=== PATIENT | female | born 2000 | race Two or more races ===

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

== ENCOUNTER 2023-05-20 21:14 | Emergency (ER) | payer OTHER, SELFPAY ==
[2023-05-20 21:38] VITALS: BP 115/68; PULSE 106; RESP 18; TEMP 37.4; O2SAT 97; BMI 25.7
--- OUTSIDE RECORDS SUMMARY | 2023-05-20 22:23 | XMS_ITS | Continuity of Care Document ---
Demographics Address [address] [place] [address] Email Address Preferred Language so Marital Status Single Pentecostal Affiliation Unknown Race Unknown Ethnic Group or Author Name Unknown Organization [facility] nd[facility] Address [address] [place] [address]- Care Team Providers Care Roustabout Crew Pusher Name Role Phone Tiara SERRATO, Jane Joseph Primary Care Physician [place] [facility] [place] 09/01/20 - 10/01/20 [facility]ology [address] [place] [phone]- Medications Ortho Tri-Cyclen Lo oral tablet 1 tablet, By Mouth, Daily, starting on the first Sunday after menstruation, # 28 tablet, 6 Refills,Maintenance, 08/30/20 17:58:00 EST, Tablet, [id number], Partial fill upon patient request, 1 tablet By Mouth Daily,x28 days,Instr:starting on t... Start Date: 08/30/20 Stop Date: 03/14/21 Status: Ordered Provera 10 mg oral tablet 10 mg, 1, tablet, By Mouth, Daily, # 10 tablet, Refills 0, Tot. Refills 0, Maintenance, 09/01/20 17:01:00 EST, Route to Pharmacy Electronically, [id number], Partial fill upon patient request Start Date: 09/01/20 Stop Date: 09/11/20 Status: Ordered
--- OUTSIDE RECORDS SUMMARY | 2023-05-20 22:23 | XMS_ITS | Continuity of Care Document ---
Demographics Address [address] [place] [address] [address] [place] [address] Email Address Preferred Language so Marital Status Single Buddhism Affiliation Unknown Race Unknown Ethnic Group or Author Name Unknown Organization [facility] ndocrinology Address [address] [place] [address]- Care Team Providers Care Soaking Pits Supervisor Name Role Phone Tiara SERRATO, Jane Joseph Primary Care Physician Encounter [facility] [place] Date(s): 08/30/20 - 09/29/20 [facility] Pediatric Endocrinology [address] [place] [phone]- Attending Physician: Sharon Godfrey Admitting Physician: Sharon Godfrey Referring Physician: Admtr, ArEl Medications Ortho Tri-Cyclen Lo oral tablet 1 [...]
--- OUTSIDE RECORDS SUMMARY | 2023-05-20 22:23 | XMS_ITS | Continuity of Care Document ---
Demographics Address [address] [place] [address] Email Address Preferred Language so Marital Status Single Oriental Orthodox Affiliation Unknown Race Unknown Ethnic Group or Author Name Unknown Organization [facility] nd[facility]ology Address [address] [place] [address]- Care Team Providers Care Sales Enablement Lead Name Role Phone Tiara SERRATO, Jane Joseph Primary Care Physician [phone] Encounter [facility] [place](s): 08/16/20 - 09/15/20 [facility] Endocrinology [address] [place] [id number]- Medications Ortho Tri-Cyclen Lo oral tablet 1 [...]
[2023-05-20 22:59] LABS: Influenza A PCR NEGATIVE (Negative); Influenza B PCR NEGATIVE (Negative); Resp Syncy Virus RNA Qual PCR NEGATIVE (Negative); SARS COV2 PCR INHOUSE NEGATIVE (Negative)
--- NOTE | 2023-05-20 23:54 | ED.GENADULT ---
HPI - General Adult General Chief complaint: General Medical Stated complaint: chills/nausea would like covid test Time Seen by Provider: 05/20/23 23:52 Source: patient Mode of arrival: ambulatory Limitations: no limitations History of Present Illness HPI narrative: Patient has been feeling congested in body aches running for last 24 no sore throat no cough no shortness of breath no rash no recent travel or mosquito bites had low-grade fever no urinary complaint Related Data Allergies Allergy/AdvReac Type Severity Reaction Status Date / Time amoxicillin [AMOXICILLIN] Allergy Mild RASH, Verified 05/20/23 21:37 HEADACHE, NAUSE Review of Systems Review of Systems: Yes all other systems are reviewed and are negative [facility] Social History Social History Advance Directives: No Advance Directives Information Provided: No Physical Exam ED Vital Signs: Vital Signs - 24 hr 05/20/23 21:38 Temperature 99.3 F Pulse Rate 106 H Respiratory Rate 18 Blood Pressure 115/68 Pulse Oximetry 97 Oxygen Delivery Method Room Air BMI result Body Mass Index 25.7 Appearance: Alert. Oriented X3. No acute distress. Eyes: No pallor ENT: Pharynx normal. Oral Mucosa moist nasal turbinates inflamed with clear discharge sinuses nontender Neck: Normal inspection. Neck supple. CVS: Normal heart rate and rhythm. Pulses normal. Respiratory: No respiratory distress. Equal air entry bilateral, no wheezing/rales/rhonchi Abdomen: Soft and nontender. Bowel sounds are present, Skin: Skin warm and dry. Normal skin color. Normal skin turgor. Extremities: No lower extremity edema. No calf tenderness Neuro: Oriented X 3. Medical Decision Making Medical Decision Making MDM Narrative: Patient likely with viral upper respiratory infection advised supportive treatment. Patient's COVID/flu/RSV negative Lab Data [facility] Lab Attestation statement: I reviewed the patient's lab results. Labs: Lab Results 05/20/23 Range/Units 22:18 Influenza Type A (PCR) NEGATIVE (Negative) Influenza Type B (PCR) NEGATIVE (Negative) RSV RNA Qual (PCR) NEGATIVE (Negative) SARS-CoV-2 RNA (RT-PCR) NEGATIVE (Negative) Discharge Plan Discharge Clinical Impression: Upper respiratory infection, viral Patient Disposition: Home, Self-Care Instructions: Upper Respiratory Infection (ED) Additional Instructions: Drink plenty of fluids Take Tylenol/Motrin for fever and body ache Follow with PCP as needed Stand Alone Forms: Work/School Release Interventions: ED Discharge Assessment Last Done: 05/21/23 00:11 Discharge Date/Time: 05/21/23 00:11
== END 2023-05-21 00:11 | disposition home or self-care (01) ==
PROVIDERS: Emergency Provider Internal Medicine
DX: J06.9 Acute upper respiratory infection, unspecified (principal); Z20.822 Contact with and (suspected) exposure to COVID-19; Z20.828 Contact with and (suspected) exposure to other viral communicable diseases; Z79.899 Other long term (current) drug therapy
CPT/HCPCS: 0241U; 99282

== ENCOUNTER 2024-02-23 11:03 | Emergency (ER) | payer OTHER, SELFPAY ==
[2024-02-23 11:08] VITALS: BP 117/74; PULSE 71; RESP 17; TEMP 36.6; O2SAT 100; BMI 26.6
--- NOTE | 2024-02-23 11:08 | ED.URI ---
HPI - URI/Sore Throat General Chief Complaint: General Medical Stated Complaint: throat pain Time Seen by Provider: 02/23/24 12:17 Source: patient Mode of arrival: ambulatory Limitations: no limitations History of Present Illness HPI Narrative: Patient is a 23-year-old female presenting to the emergency department with complaint of sore throat and white spots noted on tonsils. She denies fevers. Denies cough or other URI symptoms. Denies any body aches, chills, nausea or vomiting. MD elicited complaint: sore throat Onset (ago): day(s) Consistency: constant Able to tolerate fluids by mouth: Yes Associated symptoms: denies other symptoms Treatments prior to arrival: none Related Data Allergies Allergy/AdvReac Type Severity Reaction Status Date / Time amoxicillin [AMOXICILLIN] Allergy Mild RASH, Verified 02/23/24 11:09 HEADACHE, NAUSE Review of Systems Review of Systems: As per HPI. Yes all other systems are reviewed and are negative Constitutional: Constitutional: Reports as per HPI [facility] Social History Social History Advance Directives: No Advance Directives Information Provided: Yes Physical Exam Vital Signs: Vital Signs: Last Vital Signs Temp 98 F 02/23/24 11:08 Pulse 71 02/23/24 11:08 Resp 17 02/23/24 11:08 BP 117/74 02/23/24 11:08 Pulse Ox 100 02/23/24 11:08 O2 Del Method Room Air 02/23/24 11:08 BMI result Body Mass Index 26.6 Vital signs have been reviewed and appear to be correct. Blood pressure normal. Heart rate normal. Respiratory rate normal. Temperature normal. Oxygen saturation normal. Const: General: cooperative, healthy appearing and no acute distress Orientation/consciousness: oriented to person, oriented to place, oriented to time and patient oriented x3 Limitations: no limitations HEENT: Head: Yes normocephalic and Yes atraumatic Ears: external ears normal General nose exam: Normal external nose present Face and sinus: Yes face symmetric Mouth: oropharynx normal and moist mucous membranes Throat: Yes uvula midline, Yes abnormal tonsil (erythema and exudate present), No peritonsillar mass and No uvular edema Eyes: Pupils: Equal, round and reactive pupils present Neck: Neck: Yes normal visual inspection, Yes full ROM, Yes no lymphadenopathy, Yes no meningeal signs, Yes trachea midline and Yes supple Resp: Effort & Inspection: normal respiratory effort and able to speak in complete sentences Auscultation: clear to auscultation bilaterally Cardio: Rate: regular rate Rhythm: regular rhythm Heart sounds: S1 normal heart sound present and S2 normal heart sound present GI: Palpation (GI): Soft to palpation and nontender Auscultation: normoactive bowel sounds : General: Yes no CVA tenderness Back/Spine/Pelvis: Back: no CVA tenderness Skin: General skin exam: elasticity normal and turgor normal Neuro: General: oriented to person, oriented to place, oriented to time, patient oriented x3, moves all extremities, no meningeal signs, no focal motor deficits and CN's II-XI intact bilaterally Cranial nerves: Yes Equal, round and reactive pupils present Cognition (Neuro): normal cognition Extrem: General: Yes full ROM, Yes no pedal edema and Yes no calf tenderness Psych: Mental Status: mental status grossly normal Affect: normal affect Thought process: Normal thought process present Course Course Course Narrative: This is a rapid medical exam. Deferred additional HPI, ROS, PE to primary provider. 23 yo female here with sore throat x 2 days. Will obtain strep testing, viral testing VSS Nicole ELLIS Medical Decision Making Medical Decision Making MDM Narrative: Patient is a 23-year-old female presenting to the emergency department with complaint of sore throat and white spots noted on tonsils. On exam patient is awake, A+Ox3, VS WNL, afebrile, normal neurological exam without focal deficits, physical exam findings as above. Given reported symptoms and physical exam findings, initial differential includes strep versus viral pharyngitis, covid, flu. Swabs for flu, Covid, and strep all negative. When asked about concern for gonorrhea, patient initially agreeable to testing for this. Patient then declined this exam when tech attempted to collect specimen. Discussed with patient the risks for untreated gonorrheal pharyngitis and patient continues to decline testing or treatment. Patient given strict instructions to return if symptoms worsen. Advised Tylenol/ibuprofen. Lab Data Labs: Lab Results 02/23/24 Range/Units 11:14 Influenza Type A (PCR) NEGATIVE (Negative) Influenza Type B (PCR) NEGATIVE (Negative) RSV RNA Qual (PCR) NEGATIVE (Negative) SARS-CoV-2 RNA (RT-PCR) NEGATIVE (Negative) S. pyogenes GrpA TRACIE Negative (Negative) Discharge Plan Discharge Clinical Impression: Pharyngitis Patient Disposition: Home, Self-Care Instructions: Pharyngitis (ED) Additional Instructions: You were evaluated in the emergency department today for a sore throat. Your COVID, flu, and strep swabs were all negative. Your symptoms are likely related to a viral infection which will resolve on its own with time and rest. Be sure to drink adequate fluids. You can use Tylenol and ibuprofen per package directions as needed for discomfort. You can also gargle with warm salt water several times daily. You can drink warm tea with honey. Follow-up with your primary care provider this week. Return to the emergency department if you develop difficulty swallowing, worsening pain, shortness of breath, are unable to swallow your saliva, or any other concerning symptoms. Print Language: Albanian
[2024-02-23 11:38] LABS: IDNOW Serial# 08D9AD1C; Strep A Nucleic Acid Negative (Negative)
[2024-02-23 12:02] LABS: Influenza A PCR NEGATIVE (Negative); Influenza B PCR NEGATIVE (Negative); Resp Syncy Virus RNA Qual PCR NEGATIVE (Negative); SARS COV2 PCR INHOUSE NEGATIVE (Negative)
[2024-02-23 12:42] VITALS: BP 117/74; PULSE 71; RESP 17; TEMP 36.6; O2SAT 100
== END 2024-02-23 12:43 | disposition home or self-care (01) ==
PROVIDERS: Nurse Practitioner Family; Emergency Provider Emergency Medicine
DX: J02.9 Acute pharyngitis, unspecified (principal); Z03.818 Encounter for observation for suspected exposure to other biological agents ruled out
CPT/HCPCS: 0241U; 87651; 99282; 99283

== ENCOUNTER 2025-08-05 13:35 | Outpatient (AMB) | payer OTHER, SELFPAY ==
--- NOTE | 2025-08-05 13:37 | MHC.PC.OV ---
Vital Signs 08/05/25 13:41 Height 5 ft 3 in Weight 149 lb 6 oz BMI 26.5 BP 110/70 Blood Pressure Location Lt brachial Position Sitting Pulse 70 Pulse Source Pulse Oximeter Temp 97.1 F Temp Source Temporal Artery Scan Pulse Oximetry (%) 98 Oxygen Delivery Method Room Air Intake Visit Reasons: establish care Accompanied by: GIRLFRIEND Allergies amoxicillin (AMOXICILLIN) Allergy (Mild, Verified 08/05/25 13:44) RASH, HEADACHE, NAUSE Medication List - Last Reconciled 08/05/25 by Becca Dupree PA-C spironolactone 50 mg PO DAILY Tobacco use date assessed: 08/05/25 Dental Screening Dental Screen Date: 08/05/25 Did you have a dental visit in the last 12 months?: Yes Did you have a dental problem in the last 6 months where you did not have access to dental care?: No Was dental information given to patient?: Patient has dentist HPI establish care HPI Details 24-year-old female coming to the office with the 1st time. - The patient is a 24-year-old female presenting to establish primary care, as she has not seen a provider for a few years since aging out of her pediatric practice. She presents today with her girlfriend. The patient is being treated for acne by a performance management consultant with spironolactone 50 mg once daily. She believes her acne started after a dermaplaning procedure. She has recently restarted this medication and reports new-onset epigastric pain and occasional nausea, which she suspects is a side effect. No acute concerns today. eye doctor: [place] pap smear: referral placed to program control analyst vaccines: Td unsure awaiting records [facility] Family History Father No problems noted. Mother No problems noted. Paternal Grandmother Breast cancer Social History Housing: Apartment Patient Tobacco Use Status: Never used Tobacco Tobacco use type: Cigarette e-Cigarette/Vaping Use: Never Used Second Hand Smoke Exposure: No service: No Current occupational status: employed Current occupation: ELECTION CLERK/ [employer] Cognitive needs: No Hearing needs: No Vision needs: Yes Female Reproductive History Menstrual Duration of menses: 6-7 days Total pregnancies: 0 History of abnormal pap smear: No History of STI: No Questionnaire PHQ-9 Over the last 2 weeks, how often have you been bothered by any of the following problems? 1. Little interest or pleasure in doing things: not at all 2. Feeling down, depressed, or hopeless: not at all 3. Trouble falling or staying asleep, or sleeping too much: not at all 4. Feeling tired or having little energy: several days 5. Poor appetite or overeating: several days 6. Feeling bad about yourself - or that you are a failure or have let yourself or your family down: not at all 7. Trouble concentrating on things, such as reading the newspaper or watching television: not at all 8. Moving or speaking so slowly that other people could have noticed. Or the opposite - being so fidgety or restless that you have been moving around a lot more than usual: not at all 9. Thoughts that you would be better off or of hurting yourself in some way: not at all Total score: 2 Depression Screening Interpretation: Negative Depression Screening Done: Yes 11776 - PHQ-9 Billing: Yes Source: Developed by Drs. Reinaldo Plaza, Stacy Burks, Kg Rice and colleagues, with an educational ce from [employer]. Thrive Questionnaire Date Thrive assessed: 08/05/25 I am a: Patient What is your living situation today?: I have a steady place to live Do you have trouble paying for medicines?: No Do you have trouble getting transportation to medical appointments?: No Do you have trouble paying your heating and electricity bill?: No Do you have trouble taking care of your child, family member or friend?: No Do you have trouble with day-to-day activities such as bathing, preparing meals, shopping, managing finances, etc.?: No Are you currently unemployed and looking for a job?: No Are you interested in more education?: No Please select the resources that you would like help with: None THRIVE Score: 0 AUDIT C Alcohol Use Questionnaire (AUDIT-C) 1. How often do you have a drink containing alcohol?: Monthly or less 2. How many drinks containing alcohol do you have on a typical day when you are drinking?: 3 or 4 3. How often do you have six or more drinks on one occasion?: Less than monthly Total Score: 3 Score Reviewed/Action Taken: Yes MARYANNE-7 AMB Questionnaire MARYANNE-7 Date MARYANNE - 7 assessed: 08/05/25 Feeling nervous, anxious, or on edge: 0 = Not at all Not being able to stop or control worryin = Not at all Worrying too much about different things: 1 = Several days Trouble relaxin = Not at all Being so restless that it is hard to sit still: 0 = Not at all Becoming easily annoyed or irritable: 1 = Several days Feeling afraid as if something awful might happen: 0 = Not at all Total MARYANNE-7 score (0-4 normal; 5-9 mild; 10-14 moderate; 15-21 severe): 2 Source: Developed by Drs. Reinaldo Plaza, Stacy Burks, Kg Rice and colleagues, with an educational ce from [employer]. MARYANNE-7 Assessment Billing MARYANNE-7 Assessment Tool: MARYANNE-7 Assessment 34815 Review of Systems Const Denies body aches, Denies chills, Denies fatigue, Denies fever(s), Denies headache(s) and Denies poor appetite Eyes Reports no additional complaints ENT Denies dysphagia, Denies dizziness, Denies headache(s) and Denies odynophagia Card Denies chest pain, Denies syncope, Denies edema, Denies irregular heart rhythm, Denies lightheadedness and Denies dyspnea Resp Denies cough and Denies dyspnea GI Denies abdominal pain, Denies constipation, Denies dysphagia, Denies diarrhea, Denies nausea, Denies odynophagia and Denies vomiting Reports no additional complaints Musc Reports no additional complaints and Denies abnormal gait Skin/Breast Reports system reviewed and no additional complaints, except as documented Neuro Denies abnormal gait, Denies dizziness, Denies syncope and Denies headache(s) Psych Reports no additional complaints Endo Denies fatigue Physical exam (Primary Care) Vital Signs: Last Vital Signs Temp 97.1 F 08/05/25 13:41 Pulse 70 08/05/25 13:41 BP 110/70 08/05/25 13:41 Pulse Ox 98 08/05/25 13:41 Oxygen Delivery Method Room Air 08/05/25 13:41 BMI result Body Mass Index 26.5 Tobacco/Smoking Status: Tobacco use Status Tobacco use date assessed 08/05/25 08/05/25 13:40 Patient Tobacco Use Status Never used Tobacco 08/05/25 13:45 Tobacco use type Cigarette 08/05/25 13:40 e-Cigarette/Vaping Use Never Used 08/05/25 13:40 PHQ-9: PHQ-9 Score PHQ-9: Total score 2 08/05/25 13:59 Depression Screening Interpretation: Negative Thrive Assessment: Date of Thrive Assessment Date Thrive assessed 08/05/25 08/05/25 13:40 Const General: cooperative, healthy appearing, comfortable and no acute distress Orientation/consciousness: patient oriented x3 HENMT Head: Yes normocephalic Ears: hearing grossly normal bilaterally General nose exam: Normal external nose present Eyes General: appearance normal, both eyes and all related structures Conjunctivae: conjunctivae normal Neck Neck: Yes full ROM and Yes no lymphadenopathy Resp Effort & Inspection: normal respiratory effort Auscultation: clear to auscultation bilaterally, no crackles, no rales, no rhonchi and no wheezes Cardio Rate: regular rate Rhythm: regular rhythm Skin General skin exam: no rashes or lesions noted Neuro General: patient oriented x3 Gait exam (Neuro): Normal gait present Extrem General: Yes normal to inspection, Yes full ROM and No edema Psych Affect: normal affect Attitude: cooperative Insight: Good insight present (Psych) Judgement: Good judgement present (Psych) Coding Level of Care Code New Pt Prev Care 18-39yr(24520 Diagnoses Annual physical exam Z00.00 Acne L70.9 Screening for cervical cancer Z12.4 Additional Codes MARYANNE-7 Assessment Billing - MARYANNE-7 Assessment Tool: MARYANNE-7 Assessment 90261 ([id number]) PHQ-9 - 55853 - PHQ-9 Billing: Yes ([id number]) Assessment & Plan Assessment & Plan (1) Annual physical exam: Code(s): Z00.00 - Encounter for general adult medical examination without abnormal findings Category: Medical Plan: The patient is establishing care with an annual physical exam. Annual lab work was ordered, including a CBC, CMP to assess kidney and liver function, a thyroid panel, and screening for vitamin B12, B2, and D deficiencies. Follow-up will be determined by lab results; if results are normal, the patient will follow up in one year. (2) Acne: Comment: Qamar Derm Code(s): L70.9 - Acne, unspecified Category: Medical Plan: The patient continues to be managed by her performance management consultant, Qamar, for acne. She is taking spironolactone 50 mg daily. Care will be coordinated with her performance management consultant, informing them that this practice is now her PCP. Advised to have patient take the medication with food to see if epigastric pain improves. (3) Screening for cervical cancer: Code(s): Z12.4 - Encounter for screening for malignant neoplasm of cervix Category: Medical Plan: Referral placed to program control analyst today. Plan This note was constructed using voice recognition software. While every effort has been made to ensure accuracy and professional skater, still areas may have been included sometimes these areas may affect the content or meeting of the given symptoms. Total time spent caring for the patient today was 30 minutes. This includes time spent before the visit reviewing the chart, time spent during the visit, and time spent after the visit and documentation. Patient was informed and verbally consented to the use of an ambient scribe for clinic note documentation during this visit. Orders: Orders Comprehensive Met. Panel Today Z00.00 - Encounter for general adult medical examination without abnormal findings, Z13.1 - Encounter for screening for diabetes mellitus TSH reflex Free T4 Today Z13.29 - Encounter for screening for other suspected endocrine disorder Vitamin B12 and Folate Today Z13.21 - Encounter for screening for nutritional disorder Vitamin D 25-OH Total Today Z13.21 - Encounter for screening for nutritional disorder Complete Blood Count Auto Diff Today Z13.0 - Encounter for screening for diseases of the blood and blood-forming organs and certain disorders involving the immune mechanism Referrals OPERATIONS ASST Referral Z12.4 - Encounter for screening for malignant neoplasm of cervix
[2025-08-05 13:41] VITALS: BP 110/70; PULSE 70; TEMP 36.2; O2SAT 98; BMI 26.5
--- OUTSIDE RECORDS SUMMARY | 2025-08-05 17:24 | XMS_ITS | Encounter Summary ---
Demographics Address [address] [place] [address] [address] [place] [address] Home Phone Mobile Phone Email Address Preferred Language Tamazight Marital Status Unknown Buddhist Affiliation Unknown Race Unknown Ethnic Group Unknown Author Organization [facility] Address [address] [place] [address] Phone Care Team Providers Care Stripping Cutter And Winder Name Role Phone Jane Menjivar MD Primary Care Provider [phone] Encounter Details Date Type Department Care Team (Late st Contact Info) Description 06/05/2012 Documentation [facility] [place] Family Medicine [address] [place] [address] Family Medicine, Physician [address] [place] [address] Social History Tobacco Use Types Packs/Day Years Used Date Smoking Tobacco: Never Assessed Comments Unknown Sex and Gender Information Value Date Recorded Sex Assigned at Female 04/08/2020 11:33 AM EDT Legal Sex Female 5:10 PM EDT Gender Identity Female 04/08/2020 11:33 AM EDT Sexual Orientation Straight 04/08/2020 11 :33 AM EDT documented as of this encounter Plan of Treatment Not on file documented as of this encounter Visit Diagnoses Not on filedocumented in this encounter Care Teams Stripping Cutter And Winder Relationship Specialty Start Date End Date Jane Menjivar MD [address] [place] [address] PCP - General Pediatrics 03/05/20 03/27/23 documented as of this encounter
--- OUTSIDE RECORDS SUMMARY | 2025-08-05 17:24 | XMS_ITS | Encounter Summary ---
Author Organization [facility] Address [address] [place] [address] Phone Care Team Providers Care Rat Exterminator Name Role Phone Jane Mnejivar MD Primary Care Provider [phone] Reason for Visit * Reason Onset Date Comments needs assessment 06/26/2018 Encounter Details Date Type Department Care Team (Late st Contact Info) Description 06/26/2018 Patient Outreach [facility] [address] [place] [address] [place] needs assessment Social History Tobacco Use Types Packs/Day Years Used Date Smoking Tobacco: Never Assessed Alcohol Use Standard Drinks/Week Comments No 0 (1 standard drink = 0.6 oz pur e alcohol) Comments Unknown Sex and Gender Information Value [...] on filedocumented in this encounter Care Teams Rat Exterminator Relationship Specialty Start Date End Date Jane Menjivar MD [address] [place] [address] PCP - General Pediatrics 03/05/20 03/27/23 documented as of this encounter
--- OUTSIDE RECORDS SUMMARY | 2025-08-05 17:24 | XMS_ITS | Encounter Summary ---
Demographics Address [address] [place] [address] [address] [place] [address] Home Phone Mobile Phone Email Address Preferred Language Belarusian Marital Status Unknown Voodoo Affiliation Unknown Race Unknown Ethnic Group Unknown Author Organization [facility] Address [address] [place] [address] Phone Care Team Providers Care Stratigraphy Teacher Name Role Phone Jane Menjivar MD Primary Care Provider [phone] Encounter Details Date Type Department Care Team (Late st Contact Info) Description 12/01/2011 Documentation [facility] [place] [facility] [address] [place] [address] Family Medicine, Physician [address] [place] [address] Social History Tobacco Use Types Packs/Day Years [...] on filedocumented in this encounter Care Teams Stratigraphy Teacher Relationship Specialty Start Date End Date Jane Menjivar MD [address] [place] [address] PCP - General Pediatrics 03/05/20 03/27/23 documented as of this encounter
--- OUTSIDE RECORDS SUMMARY | 2025-08-05 17:24 | XMS_ITS | Encounter Summary ---
Demographics Address [address] [place] [address] Home Phone Mobile Phone Email Address Preferred Language Wolof Marital Status Unknown Church Affiliation Unknown Race Unknown Ethnic Group Unknown Author Organization [facility] Address [address] [place] [address] Phone Care Team Providers Care Cardio Tech Name Role Phone Jane Menjivar MD Primary Care Provider [phone] Reason for Visit * Reason Comments Med Refill Encounter Details Date Type Department Care Team (Late st Contact Info) Description 11/08/2020 Refill [facility] [place] [address] [place] [address] Jane Menjivar MD [address] [place] [address] Vitamin D deficiency Social History Tobacco Use Types Packs/Day Years Used Date Smoking Tobacco: Never Alcohol Use Standard Drinks/Week Comments No 0 (1 standard drink = 0.6 oz pur e alcohol) Hunger/Food Answer Date Recorded In the last 12 months, did y ou or your family ever eat less than you felt you should because there wasn't enough money for food? No 04/08/2020 Stable Housing Answer Date Recorded Are you worried that in the next 2 months you may not have stable housing? No 04/08/2020 Transportation Concerns Answer Date Rec orded In the last 12 months, have you or your family ever had to go without healthcare because you didn't have a way to get there? No 04/08/2020 Hazards in Home Answer Date Recorded Think about the place you li ve. Do you have problems with any of the following? Pests (mice or roaches), mold, no/not working smoke detectors, water leaks, no window guards. No 2019 Financing Utilities Answer Date Recorde d In the last 12 months, has t he electric, gas, oil, or water company threatened to shut off your services in your home? No 04/08/2020 Safety at Home Answer Date Recorded Are you or your family worried about feeling saf e in your home? No 04/08/2020 Outside Support Answer Date Recorded Do you feel that you need mo re support from other people or programs to help you care for yourself or your family? No 04/08/2020 Understanding Health Concerns Answer Da te Recorded Do you need help understandi ng your or your child's healthcare needs (diagnosis, medications, plan, etc.)? No 04/08/2020 Financing Health Concerns Answer Date R ecorded In the last 12 months, was t here a time when your child needed to see a doctor or get medications or supplies but could not because of cost? No 04/08/2020 Missing School or Work Answer Date Joey rded Did you or your child miss s chool or work because of a health problem that could have been avoided? No 04/08/2020 Comments No Sex and Gender Information Value Date Recorded Sex Assigned at Female 04/08/2020 11:33 AM EDT Legal Sex Female 5:10 PM EDT Gender Identity Female 04/08/2020 11:33 AM EDT Sexual Orientation Straight 04/08/2020 11 :33 AM EDT documented as of this encounter Miscellaneous Notes * Telephone Encounter - Jane Menjivar MD - 11/10/2020 9:05 AM EST Lab was ordered in August, shouldn't need to be placed again. Thanks. * Telephone Encounter - Fara Boothe LPN - 11/09/2020 10:03 AM EST Spoke to patient she will go this week to have labs done. Can you put orders in? * Telephone Encounter - Jane Menjivar MD - 11/08/2020 11:30 AM EST Rx done. Can you call to remind her to have her lab drawn at a [facility] lab? Thanks! * Telephone Encounter - Fara Boothe LPN - 11/08/2020 9:47 AM EST Pharm request Vit D. Last pe 04/2020 Last office visit 08/2020. documented in this encounter Plan of Treatment Not on file documented as of this encounter Visit Diagnoses Diagnosis Vitamin D deficiency documented in this encounter Care Teams Cardio Tech Relationship Specialty Start Date End Date Jane Menjivar MD [address] [place] [address] PCP - General Pediatrics 03/05/20 03/27/23 documented as of this encounter
--- OUTSIDE RECORDS SUMMARY | 2025-08-05 17:24 | XMS_ITS | Encounter Summary ---
Demographics Address [address] [place] [address] [address] [place] [address] Home Phone Mobile Phone Email Address Preferred Language Hebrew Marital Status Unknown Temple Affiliation Unknown Race Unknown Ethnic Group Unknown Author Organization [facility] Address [address] [place] [address] Phone Care Team Providers Care Cut Off Saw Grader Name Role Phone Jane Menjivar MD Primary Care Provider [phone] Encounter Details Date Type Department Care Team (Late st Contact Info) Description 01/26/2017 Documentation [facility] [place] [address] [place] [address] Family Medicine, Physician [address] [place] [address] Social History Tobacco Use Types Packs/Day Years [...] on filedocumented in this encounter Care Teams Cut Off Saw Grader Relationship Specialty Start Date End Date Jane Menjivar MD [address] [place] [address] PCP - General Pediatrics 03/05/20 03/27/23 documented as of this encounter
--- OUTSIDE RECORDS SUMMARY | 2025-08-05 17:24 | XMS_ITS | Encounter Summary ---
Demographics Address [address] [place] [address] [address] [place] [address] Home Phone Mobile Phone Email Address Preferred Language Romanian Marital Status Unknown Buddhism Affiliation Unknown Race Unknown Ethnic Group Unknown Author Organization [facility] Address [address] [place] [phone] Phone Care Team Providers Care Shank Threader Name Role Phone Jane Menjivar MD Primary Care Provider [phone] Encounter Details Date Type Department Care Team (Late st Contact Info) Description 05/24/2017 Conversion Encounter [facility] [place] [address] [place] [address] Social History Tobacco Use Types Packs/Day Years [...] on filedocumented in this encounter Care Teams Shank Threader Relationship Specialty Start Date End Date Jane Menjivar MD [address] [place] [address] PCP - General Pediatrics 03/05/20 03/27/23 documented as of this encounter
--- OUTSIDE RECORDS SUMMARY | 2025-08-05 17:24 | XMS_ITS | Clinical Summary ---
Demographics Address [address] [place] [address] [address] [place] [address] Home Phone Mobile Phone Email Address Preferred Language Romansh Marital Status Unknown Jehovah'S Witness Affiliation Unknown Race Unknown Ethnic Group Unknown Author Organization [facility] Address [address] [place] [address] Phone Care Team Providers Care Group Counselor Name Role Phone Unavailable Primary Care Provider Unavailabl e Allergies Active Allergy Reactions Criticality Noted Date Comments Diphenhydramine Rash Low 06/19/2017 Penicillin G Rash Low 06/19/2017 Tramadol Rash Low 06/19/2017 Phenol Hives 06/19/2017 Medications cholecalciferol 50 MCG (1999 UT) capsuleIndicati ons:Vitamin D deficiency TAKE 1 CAPSULE BY MOUTH EVERY DAY 30 capsule 2 1 Active Additional Information Patient not taking.Reported on 03/17/2022 clindamycin 1 % gelIndications: Acne vulgaris APPLY TO AFFECTED AREA AT NIGHT 60 g 3 1 Active Additional Information Patient not taking.Reported on 03/17/2022 Active Problems Problem Noted Date Diagnosed Date BMI 27.0-27.9,adult 08/16/2020 Overview (04/08/2021): Gradually (though slowly) increasing. Assessment & Plan (03/17/2022 9:18 AM EDT): Doing great with healthy lifestyle changes! Assessment & Plan (04/08/2021 12:04 PM EDT): BMI Readings from Last 4 Encounters: 04/08/21 29.80 kg/m (93 %, Z= 1.49)* 08/16/20 29.80 kg/m (94 %, Z= 1.54)* 04/08/20 28.42 kg/m (92 %, Z= 1.40)* 02/21/19 27.97 kg/m (92 %, Z= 1.43)* * Growth percentiles are based on [facility] (Girls, 2-20 Years) data. Diet has improved some, and planning to start exercising again. Will continue to follow and encourage healthy habits (today we discussed limiting even juice as she's doing well limiting soda). Assessment & Plan (08/16/2020 1:44 PM EST): Will check hemoglobin a1c today given we are drawing labs for secondary amenorrhea today. Vitamin D deficiency 08/16/2020 Overview (06/13/2022): 1,25 [place] vit D level = 5.12 April 2020. Vitamin D 2000IU/day prescribed 08/16/20. 1,25 [place] vit D level = 25.14 April 2021. Assessment & Plan (04/08/2021 12:01 PM EDT): Never had her Vitamin D level re-checked, will send it today. She is on [employer] and we discussed how I will communicate with her on [employer] regarding what to do about her Vitamin D when the results are in. Assessment & Plan (08/16/2020 1:53 PM EST): Vitamin D 2000IU/day prescribed today. Plan to recheck levels in 2-3 months. Borderline hyperlipidemia 08/16/2020 Overview (08/16/2020): 04/26: TC 139, TG 151, HDL 36 Assessment & Plan (04/08/2021 12:03 PM EDT): Diet has improved some, and planning to start exercising again. Plan to check cholesterol in another year or so. Assessment & Plan (08/16/2020 1:54 PM EST): Patient is working on improving her diet. We also discussed daily exercise. Acne vulgaris 04/08/2020 Overview (06/13/2022): Benzoyl peroxide and clinda gel started 04/26, self-discontinued after several months. OCPs started by endo 08/27, self-discontinued 02/25 (didn't feel like they helped her acne). 04/27- improved off all meds, and happy with this. 03/29- worsening of acne. Started on minocycline and benzoyl peroxide. Stopped minocycline after <2 weeks due to side effects. Assessment & Plan (03/17/2022 9:20 AM EDT): Given worsening of acne and use of topicals in the past, I offered her oral treatment (OCPs or antibiotics) and she would like to try antibiotics. We will start minocycline 50mg bid, and I also would like her using benzoyl peroxide daily. F/u 2-3 months (can be with well visit). Assessment & Plan (04/08/2021 11:55 AM EDT): Improved off all meds, and happy with this. Assessment & Plan (08/16/2020 1:58 PM EST): Patient seems happy with acne treatment, though still with acne. OCPs would also help this (in addition to secondary amenorrhea), will await labs and then likely start OCPs. Assessment & Plan (04/08/2020 11:29 AM EDT): Will start benzoyl peroxide gel in the mornings and clinda gel in the evenings. F/u 3 months for acne check (can be virtual). Secondary oligomenorrhea 04/08/2020 Overview (03/17/2022): Started around ~17-18yo. Only had menses 2-3x in the last year at 19yo (and has gone >6mo without menses). Does have acne, no hirsutism. BMI = 30. Likely dx = PCOS. Seen by edward portillo at [facility] 08/30/20- provera then orthotricyclen-lo, weight loss, f/u 6 mo. 04/27- never followed up with bandar, not interested in doing so. Self-discontinued the OCP. To f/u with me if no menses > 3 months. 03/29- healthier lifestyle, lost some weight, now getting periods monthly. Assessment & Plan (03/17/2022 9:18 AM EDT): Now getting periods monthly. Assessment & Plan (04/08/2021 12:03 PM EDT): Never followed up with endo, not interested in doing so. Self-discontinued the OCP recently so will follow menses. To f/u with me if no menses > 3 months. Will also send 17-OHP given never done, to r/o late-onset CAH. Assessment & Plan (08/16/2020 1:56 PM EST): Likely PCOS. Will send labs today. I also referred to endo (patient to call to make appt), and depending on labs, will consider OCP treatment. Assessment & Plan (04/08/2020 11:39 AM EDT): Discussed need to have period at least every 30 days. May have PCOS. Will f/u in 3 months and consider w/u and treatment then depending on period frequency. Decreased vision 04/07/2020 Overview (04/07/2020): Has glasses Assessment & Plan (04/08/2021 12:03 PM EDT): Nl vision today. Assessment & Plan (04/08/2020 12:08 PM EDT): Failed vision today, but wasn't wearing her glasses. Needs regular eye exams and to wear glasses. Resolved Problems Problem Noted Date Diagnosed Date Resolved Date Leg pain, bilateral 06/19/2017 02/22/20 19 ADHD (attention deficit hype ractivity disorder), combined type 04/08/2020 Overview (02/21/2019): Previously on Concerta, prescribed by Carmen Nelson. Now discontinued - SO 02/2019 Immunizations Immunization Administration Dates Next Due DTaP 5 12/14/2006, 3,04/15/2002,02/11,2001 H1N1 08/26/2009 HPV, Quadrivalent 01/12/2015,01/07/2014,01/04/20 13 Hep A, ped/adol 01/18/2016,01/12/2015 Hep B, ped/adol 07/16/2002,2001,2001 Hib (PRP-T) 01/15/2003, 2,02/11/2002,12/11 IPV 12/14/2006, 2,02/11/2002,12/11 Influenza Split 11/16/2011 Influenza, injectable, quadr ivalent, preservative free 08/16/2020 MMR 11/02/2005,11/05/2002 Meningococcal Conj (Menactra) MCV4P 02/20/2018,0 01/03/2013 Pneumococcal Conjugate 08/27/2003,2001,02/11/2002,12/11 Tdap 01/03/2013 Varicella 01/17/2008,11/05/2002 Family History Medical History Relation Name Comments Hyperlipidemia Father Diabetes Maternal Grandmother No Known Problems Mother Relation Name Status Comments Brother 1 Alive Brother: Alive and well, Alive and well Brother 2 Alive Brother: Alive and well, Alive and well Father Maternal Grandfather Alive Maternal Grandmother Alive Mother Mother: Asthma Other 1 grandma: Diabet es mellitus Other 2 Family history of Hyperlipidemia, Family history of Migraines Social History Tobacco Use Types Packs/Day Years Used Date Smoking Tobacco: Never Tobacco Cessation:Counseling Given: Yes Alcohol Use Standard Drinks/Week Comments No 0 (1 standard drink = 0.6 oz pur e alcohol) Hunger/Food Answer Date Recorded In the last 12 months, did y ou or your family ever eat less than you felt you should because there wasn't enough money for food? No 04/08/2021 Stable Housing Answer Date Recorded Are you worried that in the next 2 months you may not have stable housing? No 04/08/2021 Transportation Concerns Answer Date Rec orded In the last 12 months, have you or your family ever had to go without healthcare because you didn't have a way to get there? No 04/08/2021 Hazards in Home Answer Date Recorded Think about the place you li ve. Do you have problems with any of the following? Pests (mice or roaches), mold, no/not working smoke detectors, water leaks, no window guards. No 2020 Financing Utilities Answer Date Recorde d In the last 12 months, has t he electric, gas, oil, or water company threatened to shut off your services in your home? No 04/08/2021 Safety at Home Answer Date Recorded Are you or your family worried about feeling saf e in your home? No 04/08/2021 Outside Support Answer Date Recorded Do you feel that you need mo re support from other people or programs to help you care for yourself or your family? No 04/08/2021 Understanding Health Concerns Answer Da te Recorded Do you need help understandi ng your or your child's healthcare needs (diagnosis, medications, plan, etc.)? No 04/08/2021 Financing Health Concerns Answer Date R ecorded In the last 12 months, was t here a time when your child needed to see a doctor or get medications or supplies but could not because of cost? No 04/08/2021 Missing School or Work Answer Date Joey rded Did you or your child miss s chool or work because of a health problem that could have been avoided? No 04/08/2021 Comments No Sex and Gender Information Value Date Recorded Sex Assigned at Female 04/08/2020 11:33 AM EDT Legal Sex Female 5:10 PM EDT Gender Identity Female 04/08/2020 11:33 AM EDT Sexual Orientation Straight 04/08/2020 11 :33 AM EDT Last Filed Vital Signs Vital Sign Reading Time Taken Comments Blood Pressure 109/66 03/17/2022 8:55 AM EDT Pulse 87 03/17/2022 8:55 AM EDT Temperature 36.2 C (97.2 F) 03/17/2022 8:55 AM EDT Respiratory Rate - - Oxygen Saturation - - Inhaled Oxygen Concentration - - Weight 70.8 kg (156 lb) 03/17/2022 8:55 AM EDT Height 160 cm (5' 3 ) 04/08/2021 11:10 AM EDT Body Mass Index 27.63 04/08/2021 11:10 AM EDT Plan of Treatment Health Maintenance Due Date Last Done Comments Men B Vaccine (1 of 2 - Standard) 2017 DTaP,Tdap,and Td Vaccines (7 - Td or Tdap) 01/03/2023 01/03/2013, 12/14/2006, 08/27/2003, Additional history exists Influenza Vaccines (#1) 2025 08/16/2020, 11/16 COVID-19 Vaccine (3 - 2024-2 6 season) 2025 05/11/2021, 04/13/2021 Hepatitis B Vaccines Completed 07/16/2002, 2001, 2001 HIB Vaccines Completed 01/15/2003, 06/2002, 02/11/2002, Additional history exists Pneumococcal Vaccine Completed 08/27/2003, 04/15/2002, 02/11/2002, Additional history exists MMR Vaccines Completed 11/02/2005, 11/05/2002 IPV Vaccines Completed 12/14/2006, 06/2002, 02/11/2002, Additional history exists Varicella Vaccines Completed 01/17/2008, 11/05/2002 HPV Vaccines Completed 01/12/2015, 11/2013, 01/03/2013 Hepatitis A Vaccines Completed 01/18/2016, 01/13/20 15 Meningococcal Vaccine Completed 02/20/2018, 013 Procedures * Due to [place] [employer] law, this organization might not be sharing sensitive test results. Procedure Name Priority Date/Time Associated Diagnosis Comments CHLAMYDIA AND GONORRHEA, AMPLIFIED Routine 04/08/2021 11:16 AM EDT Screening examination for bacterial and spirochetal disease from Last 3 Months or Most Recently Relevant to Health Maintenance Results * Due to [place] [employer] law, this organization might not be sharing sensitive test results. * Chlamydia and Gonorrhoea, Amplified (04/08/2021 11:16 AM EDT) Chlamydia Trachomatis, DNA Probe NEGATIVE (NEG) [facility] Comment: No Chlamydia Trachomatis RNA detected in this patient's sample (REFERENCE RANGE/NORMAL VALUE: NOT DETECTED) Note: This test uses agricultural research engineer- mediated amplification method to detect rRNA from C. Trachomatis URINE GC AMP PROBE NEGATIVE (NEG) [facility] Comment: No Neisseria Gonorrhoeae RNA detected in this patient's sample (REFERENCE RANGE/NORMAL VALUE: NOT DETECTED) NOTE: This test uses agricultural research engineer-mediated amplification method to detect rRNA from N.Gonorrhoeae. A negative result does not preclude infection. In the case of a negative urine result, testing of an endocervical(female) or urethral (male) specimen is recommended if there is high clinical suspicion of infection. Due to very high sensitivity of Nucleic Acid Amplification Test, false positive results may occur. Therefore, specimen handling is extremely important. In patients in whom the disease is unlikely, additional sample for testing should be considered after an initial positive result. The performance characteristics of this test have not been evaluated in children. The Aptima Combo2 assay is not intended for the evaluation of suspected sexual abuse or for other medico-legal indications. The ordering provider should assess if the patient had consensual sex without risk of sexual abuse. Consult the [facility] if needed. Contact phone number . Therapeutic failure or success cannot be determined with the Aptima Combo2 assay since nucleic acid may persist following appropriate antimicrobial therapy. The Centers for Disease Control and Prevention (CDC) recommends confirmatory retesting using culture or a different nucleic acid amplification test when positive results occur, if indicated. Testing performed or reported by [facility], a Service of [facility], [facility] [place] [address] Mike Sweet MD, Laser Set Up Operator Urine 04/08/2021 11:1 6 AM EDT 04/08/2021 6:06 PM EDT Jane Menjivar MD LAB MICROBIOLOGY - GENERAL OR DERABLES Final Result [facility] from Last 3 Months or Most Recently Relevant to Health Maintenance
== END 2025-08-05 14:29 | disposition home or self-care (01) ==
DX: Z00.00 Encounter for general adult medical examination without abnormal findings (principal); L70.9 Acne, unspecified; Z12.4 Encounter for screening for malignant neoplasm of cervix

== ENCOUNTER → 2025-08-05 13:35 | Outpatient (BNVA) | payer OTHER, SELFPAY | DX: Z00.00 Encounter for general adult medical examination without abnormal findings (principal); L70.9 Acne, unspecified | CPT/HCPCS: 96127; 99385 ==

== ENCOUNTER 2025-08-07 15:40 | Outpatient (REF) | payer OTHER, SELFPAY ==
--- OUTSIDE RECORDS SUMMARY | 2025-08-07 15:43 | XMS_ITS | Clinical Summary ---
Demographics Address [address] [place] [address] [address] [place] [address] Home Phone Mobile Phone Email Address Preferred Language Maltese Marital Status Unknown Confucianist Affiliation Unknown Race Unknown Ethnic Group Unknown Author Organization [facility] Address [address] [place] [address] Phone Care Team Providers Care Director Of Outpatient Services Name Role Phone Unavailable Primary Care Provider [...] 1.43)* * Growth percentiles are based on [facility] (Girls, 2-20 Years) data. Diet has improved [...] will send it today. She is on [employer] On[employer] and we discussed how I will communicate with her on Geel[employer] regarding what to do about her Vitamin [...] = PCOS. Seen by edward portillo at [facility] 08/30/20- provera then orthotricyclen-lo, weight loss, [...] Completed 02/20/2018, 013 Procedures * Due to [place] o[place] law, this organization might not be sharing sensitive test results. Procedure Name Priority Date/Time Associated Diagnosis Comments CHLAMYDIA AND GONORRHEA, AMPLIFIED Routine 04/08/2021 11:16 AM EDT Screening examination for bacterial and spirochetal disease from Last 3 Months or Most Recently Relevant to Health Maintenance Results * Due to [place] law, this organization might not be sharing sensitive test results. * Chlamydia and Gonorrhoea, Amplified (04/08/2021 11:16 AM EDT) Chlamydia Trachomatis, DNA Probe NEGATIVE (NEG) [facility] Comment: No Chlamydia Trachomatis RNA detected in this patient's sample (REFERENCE RANGE/NORMAL VALUE: NOT DETECTED) Note: This test uses wafer production worker- mediated amplification method to detect rRNA from C. Trachomatis URINE GC AMP PROBE NEGATIVE (NEG) [facility] Comment: No Neisseria Gonorrhoeae RNA detected in this patient's sample (REFERENCE RANGE/NORMAL VALUE: NOT DETECTED) NOTE: This test uses wafer production worker-mediated amplification method to detect rRNA from N.Gonorrhoeae. [...] without risk of sexual abuse. Consult the [facility] if needed. Contact phone number . Therapeutic failure or success cannot be determined with the Aptima Combo2 assay since nucleic acid may persist following appropriate antimicrobial therapy. The Centers for Disease Control and Prevention (CDC) recommends confirmatory retesting using culture or a different nucleic acid amplification test when positive results occur, if indicated. Testing performed or reported by [facility], a Service of [facility], [facility] [place] [address] Mike Sweet MD, Business Services Representative Urine 04/08/2021 11:1 6 AM EDT 04/08/2021 6:06 PM EDT Jane Menjivar MD LAB MICROBIOLOGY - GENERAL OR DERABLES Final Result [facility] from Last 3 Months or Most Recently Relevant to Health Maintenance
--- OUTSIDE RECORDS SUMMARY | 2025-08-07 15:43 | XMS_ITS | Encounter Summary ---
Demographics Address [address] [place] [address] Home Phone Mobile Phone Email Address Preferred Language Polish Marital Status Unknown Amish Affiliation Unknown Race Unknown Ethnic Group Unknown Author Organization [facility] Address [address] [place] [address] Phone Care Team Providers Care Information Technology Administrator Name Role Phone Jane Menjivar MD Primary Care Provider Reason for Visit * Reason Comments Med Refill Encounter Details Date Type Department Care Team (Late st Contact Info) Description 11/08/2020 Refill [facility] [place] [address] [place] [address] Jane Menjivar MD [address] [place] [address] Vitamin D deficiency Social History Tobacco Use [...] to have her lab drawn at a [facility] lab? Thanks! * Telephone Encounter - Fara Boothe LPN - 11/08/2020 9:47 AM EST Pharm request Vit D. Last pe 04/2020 Last office visit 08/2020. documented in this encounter Plan of Treatment Not on file documented as of this encounter Visit Diagnoses Diagnosis Vitamin D deficiency documented in this encounter Care Teams Information Technology Administrator Relationship Specialty Start Date End Date Jane Menjivar MD [address] [place] [address] PCP - General Pediatrics 03/05/20 03/27/23 documented as of this encounter
--- OUTSIDE RECORDS SUMMARY | 2025-08-07 15:43 | XMS_ITS | Encounter Summary ---
Demographics Address [address] [place] [address] [address] [place] [address] Home Phone Mobile Phone Email Address Preferred Language Yi Marital Status Unknown Sabianist Affiliation Unknown Race Unknown Ethnic Group Unknown Author Organization [facility] Address [address] [place] [address] Phone Care Team Providers Care Carbon Brush Maker Name Role Phone Jane Menjivar MD Primary Care Provider [phone] Encounter Details Date Type Department Care Team (Late st Contact Info) Description 01/26/2017 Documentation [facility] Family Medicine [address] [place] [address] Family Medicine, Physician [address] [place] [address] Social History Tobacco Use Types Packs/Day Years [...] on filedocumented in this encounter Care Teams Carbon Brush Maker Relationship Specialty Start Date End Date Jane Menjivar MD [address] [place] [address] PCP - General Pediatrics 03/05/20 03/27/23 documented as of this encounter
--- OUTSIDE RECORDS SUMMARY | 2025-08-07 15:43 | XMS_ITS | Encounter Summary ---
Author Organization [facility] Address [address] [place] [address] Phone Care Team Providers Care Iridologist Name Role Phone Jane Menjivar MD Primary Care Provider [phone] Reason for Visit * Reason Onset Date Comments needs assessment 06/26/2018 Encounter Details Date Type Department Care Team (Late st Contact Info) Description 06/26/2018 Patient Outreach [facility] [address] [place] [address] [place] needs assessment Social History Tobacco Use Types [...] on filedocumented in this encounter Care Teams Iridologist Relationship Specialty Start Date End Date Jane Menjivar MD [address] [place] [address] PCP - General Pediatrics 03/05/20 03/27/23 documented as of this encounter
--- OUTSIDE RECORDS SUMMARY | 2025-08-07 15:43 | XMS_ITS | Encounter Summary ---
Demographics Address [address] [place] [address] [address] [place] [address] Home Phone Mobile Phone Email Address Preferred Language Portuguese Marital Status Unknown Faith Affiliation Unknown Race Unknown Ethnic Group Unknown Author Organization [facility] Address [address] [place] [address] Phone Care Team Providers Care Airport Representative Name Role Phone Jane Menjivar MD Primary Care Provider [phone] Encounter Details Date Type Department Care Team (Late st Contact Info) Description 06/05/2012 Documentation [facility] Family Medicine [address] [place] [address] Family Medicine, Physician [address] [place] [address] Social History Tobacco Use Types Packs/Day Years [...] on filedocumented in this encounter Care Teams Airport Representative Relationship Specialty Start Date End Date Jane Menjivar MD [address] [place] [address] PCP - General Pediatrics 03/05/20 03/27/23 documented as of this encounter
--- OUTSIDE RECORDS SUMMARY | 2025-08-07 15:43 | XMS_ITS | Encounter Summary ---
Demographics Address [address] [place] [address] [address] [place] [address] Home Phone Mobile Phone Email Address Preferred Language Romansh Marital Status Unknown Baptism Affiliation Unknown Race Unknown Ethnic Group Unknown Author Organization [facility] Address [address] [place] [address] Phone Care Team Providers Care Stockholder Name Role Phone Jane Menjivar MD Primary Care Provider [phone] Encounter Details Date Type Department Care Team (Late st Contact Info) Description 05/24/2017 Conversion Encounter [facility] [place] [address] [place] [address] Social History Tobacco Use Types Packs/Day Years [...] on filedocumented in this encounter Care Teams Stockholder Relationship Specialty Start Date End Date Jane Menjivar MD [address] [place] [address] PCP - General Pediatrics 03/05/20 03/27/23 documented as of this encounter
--- OUTSIDE RECORDS SUMMARY | 2025-08-07 15:43 | XMS_ITS | Encounter Summary ---
Demographics Address [address] [place] [address] [address] [place] [address] Home Phone Mobile Phone Email Address Preferred Language Pashto Marital Status Unknown Gnosticism Affiliation Unknown Race Unknown Ethnic Group Unknown Author Organization [facility] Address [address] [place] [address] Phone Care Team Providers Care Hood Fitter Name Role Phone Jane Menjivar MD Primary Care Provider [phone] Encounter Details Date Type Department Care Team (Late st Contact Info) Description 12/01/2011 Documentation [facility] Family Medicine [address] [place] [address] Family Medicine, Physician [address] [place] [address] Social History Tobacco Use Types Packs/Day Years [...] on filedocumented in this encounter Care Teams Hood Fitter Relationship Specialty Start Date End Date Jane Menjivar MD [address] [place] [address] PCP - General Pediatrics 03/05/20 03/27/23 documented as of this encounter
[2025-08-07 15:48] LABS: MANUAL DIFF FLAG NO
[2025-08-07 16:57] LABS: Hematocrit 38.0 % (37.0-47.0); Hemoglobin 12.6 g/dl (12.0-16.0); Imm Gran Abs Auto 0.01 X10*3/uL (0.00-0.03); Imm Gran Pct Auto 0.2 % (0.0-0.4); Lymphocytes Absolute Auto 2.0 X10*3/uL (1.2-4.9); Mean Corpuscular HGB Conc 33.2 g/dl (31.0-35.0); Mean Corpuscular Hemoglobin 29.7 pg (27.0-33.0); Mean Corpuscular Volume 89.6 fL (80.0-98.0); NRBC Abs Auto 0.000 X10*3/uL (0.0-0.012); NRBC Pct Auto 0.0 /100WBC (0.0-0.2); Platelet Count 202 X10*3/uL (160-400); Red Blood Count 4.24 X10*6/uL (4.20-5.50); White Blood Count 5.7 X10*3/uL (4.8-10.8)
[2025-08-07 17:26] LABS: Alanine Aminotransferase 13 U/L (0-31); Albumin Level 4.6 g/dL (3.5-5.0); Alkaline Phosphatase 59 U/L (39-117); Anion Gap 12 (12-20); Aspartate Amino Transferase 17 U/L (5-31); Blood Urea Nitrogen 13 mg/dL (9-16); Calcium 9.1 mg/dL (8.4-10.2); Carbon Dioxide 27 mmol/L (22-29); Chloride 106 mmol/L (96-108); Estimated Glomerular Filt Rate > 60; Potassium 4.2 mmol/L (3.3-5.1); Sodium 141 mmol/L (135-145); Total Protein 7.4 g/dL (6.5-8.0)
[2025-08-07 17:52] LABS: Folate 10.5 ng/mL (> or = 4.0); Vitamin B12 600 pg/mL (200-900)
== END 2025-08-07 15:41 | disposition home or self-care (01) ==
LOC: HO.LAB 15:40
DX: Z00.00 Encounter for general adult medical examination without abnormal findings (principal); Z13.1 Encounter for screening for diabetes mellitus; Z13.21 Encounter for screening for nutritional disorder; Z13.0 Encounter for screening for diseases of the blood and blood-forming organs and certain disorders involving the immune mechanism; Z13.29 Encounter for screening for other suspected endocrine disorder
CPT/HCPCS: 36415; 80053; 82306; 82607; 82746; 84443; 85025